=== PATIENT | female | born 1950 | race Caucasian/White ===

== ENCOUNTER → 2017-01-01 | Outpatient (CLI) | payer MEDICARE, OTHER ==
[~2017-01-01] MED LIST: ALPR0.25 PO; AMOX-291 PO; CYAN10002 IM; CYCL-259 PO; DULO30CA2 PO; GABA300C10 PO; HYDR-3276 PO; IRON1TAB62 PO; LEVO125T5 PO; METO-93 PO; OLME40TA PO; PANT40TA3 PO; REGADENOSON 0.4 MG/5 ML SYRINGE ONE
== END | disposition home or self-care (01) ==
LOC: CFH 07:44
PROVIDERS: ATTEND Nurse Practitioner Family
DX: R07.9 Chest pain, unspecified (principal)
CPT/HCPCS: 78452; 93017; A9502; J2785